=== PATIENT | male | born 1980 | race Caucasian/White ===

== ENCOUNTER 2020-07-27 06:33 | Emergency (ER) | payer OTHER ==
[~2020-07-27 06:33] MED LIST: FELDENE10 MG PO; FLEXERIL 10 MG10 MG PO
[2020-07-27 08:09] LABS: RED BLOOD COUNT 5.12 M/UL (4.20-5.50); WHITE BLOOD COUNT 12.2 K/UL (4.5-11.0)
[2020-07-27 08:31] LABS: BUN/CREATININE RATIO 17 (0-10)
== END 2020-07-27 08:03 | disposition home or self-care (01) ==
LOC: ER1 06:33
PROVIDERS: Emergency Medicine
DX: R06.00 Dyspnea, unspecified (principal); F17.210 Nicotine dependence, cigarettes, uncomplicated; Z88.0 Allergy status to penicillin
CPT/HCPCS: 80053; 82550; 82553; 83874; 83880; 84484; 85025; 85379; 99285